=== PATIENT | female | born 1950 | race Caucasian/White ===

== ENCOUNTER → 2021-07-17 | Outpatient (CLI) | payer MEDICARE, BC ==
[~2021-07-17] MED LIST: CRESTOR PO; FLEXERIL 1010 MG/TAB PO; FLEXERIL10 MG PO; LORTAB 5/500 501 TAB PO; PLAQUENIL 200M200 MG PO; PLAQUNIL PO; PRINIVIL10 MG; PRINZIDE 12.5 M1 TAB PO; RYBIX ODT50 MG PO; SALSALATE500 MG PO; STRESS FORMULA1 TA1 PO; SYNTHROID 0.10.15 MG PO; TYLENOL #3 301 UDTAB PO; TYLENOL 325MG325 MG PO; TYLENOL PO; ULTRAM 50MG TAB50 MG PO; [UNRECOGNIZED DRUG - OTHER] PO; [UNRECOGNIZED DRUG - OTHER] PO
== END ==
LOC: COL.RAD 12:50
DX: Z12.2 Encounter for screening for malignant neoplasm of respiratory organs (principal); R91.1 Solitary pulmonary nodule; Z87.891 Personal history of nicotine dependence

== ENCOUNTER 2024-07-13 09:44 | Day surgery (SDC) | payer MEDICARE, BC ==
[~2024-07-13] VITALS: Ht 167.6 cm; Wt 103.6 kg
[2024-07-13 10:01] VITALS: BP 132/87; PULSE 76; TEMP 98.2
[2024-07-13] MEDS ORDERED: MICROZIDE12.5 MG PO (10:23)
[2024-07-13] MEDS ORDERED: ASPERCREME1 EACH TP (10:27)
[2024-07-13] MEDS ORDERED: CVS SPECTRAVIT1 EA15 PO (10:27)
--- NOTE | 2024-07-13 13:15 | NUR ---
PATIENT TOLERATED PROCEDURE WELL, STERILE DRESSING PLACED AND REMAINS CDI. TRANSFER OF CARE REPORT TO MÓNICA NICOLE. FAMILY BROUGHT TO BEDSIDE, QUESTIONS INVITED. PATIENT PROVIDED LOOP RECORDER INFORMATION AND BEDSIDE MONITOR.
--- NOTE | 2024-07-13 14:19 | NUR ---
Pt ambulated with a steady gait to EU12. Pt was scheduled for a Loop recorder placement. Meds and HX reviewed with the pt. EKG done. Consent for the procedure signed. Post procedure the pts chest site was assessed. Clean, dry, and intact. Discharge education and information discussed with the pt. No questions at the time. Pt exited the unit with a steady gait.
== END 2024-07-13 13:49 | disposition home or self-care (01) ==
LOC: COL.CAR 09:44
DX: Z45.09 Encounter for adjustment and management of other cardiac device (principal)
CPT/HCPCS: 27886; C1764